=== PATIENT | male | born 1945 | race American Indian/Alaskan Native ===

== ENCOUNTER 2019-08-30 07:09 | Outpatient (CLI) | payer MEDICARE, OTHER ==
[2019-08-30 07:30] LABS: Hematocrit 45.8 % (35.5-45.6); Hemoglobin 15.3 gm/dl (11.8-15.2); Mean Corpuscular HGB Conc 33 % (32-34); Mean Corpuscular Volume 101 fl (84-94); Platelet Count 186 K/mm3 (140-440); Red Blood Count 4.55 M/mm3 (3.65-5.03); Red Cell Distribution Width 14.6 % (13.2-15.2)
[2019-08-30 07:51] LABS: Alanine Aminotransferase 27 units/L (7-56); Albumin 4.3 g/dL (3.9-5); BUN/Creatinine Ratio 14; Blood Urea Nitrogen 17 mg/dL (9-20); Calcium 9.8 mg/dL (8.4-10.2); Chol/HDL Ratio 2.69 %; HDL Cholesterol 78 mg/dL (40-59); Hemolysis Index 4; LDL Cholesterol,Direct 136 mg/dL (50-130)
--- NOTE | 2019-08-30 08:15 | Cat Scan Report ---
CT CHEST WITHOUT CONTRAST INDICATION / CLINICAL INFORMATION: Follow up on right lung pulmonary nodule. TECHNIQUE: Axial CT images were obtained through the chest without contrast. Sagittal and coronal reformatted im ages. All CT scans at this location are performed using CT dose reduction for ALARA by means of autom ated exposure control. COMPARISON: None available at this facility. FINDINGS: HEART: Heart size is at the upper limits of normal with mild three-vessel coronary artery calcificati ons. No pericardial effusion. THORACIC AORTA: Minor atherosclerotic calcifications at the arch. No aneurysm. MEDIASTINUM and RADHA: The thyroid gland, tracheobronchial tree and esophagus are unremarkable. No med iastinal mass or adenopathy. LUNGS: The lungs are generally well-aerated. Mild chronic interstitial changes are noted at the lung bases. A 5 mm subpleural nodule is identified in the lateral right lower lobe on image 207, series 3. A 3 mm subpleural pulmonary nodule is identified in the posterior right lower lobe on image 229, ser ies 3. Overall these nodules have a benign appearance. No large or suspicious pulmonary nodule/mass. PLEURA: No significant pleural effusion. No pneumothorax. SKELETAL SYSTEM: Mild degenerative changes in the spine. UPPER ABDOMEN: A 2.5 cm peripherally calcified structure is identified in the fundus of the gallbladd er. It is unclear if this represents a peripherally calcified gallstone or possibly gallbladder wall calcifications. No biliary dilatation or inflammation. ADDITIONAL FINDINGS: None. IMPRESSION: There are 2 tiny benign-appearing subpleural nodules in the right lower lobe as described. Consider follow-up in 6-12 months. Mild chronic interstitial changes at the lung bases. Borderline heart size. 2.5 cm peripherally calcified gallstone versus gallbladder wall calcifications. Signer Name: Trace Jessica Jr, MD Signed: 08/30/2019 8:10 AM Workstation Name: [id number]
--- NOTE | 2019-08-30 09:09 | XRay Report ---
CHEST 2 VIEWS INDICATION: FOLLOW UP PULM NODULE. COMPARISON: None. FINDINGS: Support devices: None. Heart: Within normal limits. Pulmonary vasculature: Normal. Lungs/pleura: The lungs are normally expanded and clear except for streaky opacities in the lower lob e region on the lateral view. No pleural effusion. No pulmonary nodule. There is a prominent left nip ple shadow and a less prominent right nipple shadow. No pneumothorax. Additional findings: None. IMPRESSION: 1. No pulmonary nodule or mass. 2. Lower lobe opacities are of uncertain significance but likely represent atelectasis or scar. Signer Name: Julio Arreola MD Signed: 08/30/2019 9:04 AM Workstation Name: [id number]
== END 2019-08-30 07:10 | disposition home or self-care (01) ==
LOC: CT 07:09
PROVIDERS: ATTEND Internal Medicine
DX: J98.4 Other disorders of lung (principal); I25.10 Atherosclerotic heart disease of native coronary artery without angina pectoris; M47.819 Spondylosis without myelopathy or radiculopathy, site unspecified
CPT/HCPCS: 36415; 71046; 71250; 80053; 80061; 84436; 84443; 85027

== ENCOUNTER 2020-06-28 07:05 | Outpatient (CLI) | payer MEDICARE, OTHER ==
--- NOTE | 2020-06-28 07:58 | Cat Scan Report ---
CT CHEST WITHOUT CONTRAST INDICATION / CLINICAL INFORMATION: FOLLOW UP ON PULMONARY NODULES. TECHNIQUE: Axial CT images were obtained through the chest without contrast. Sagittal and coronal reformatted im ages. All CT scans at this location are performed using CT dose reduction for ALARA by means of autom ated exposure control. COMPARISON: 08/30/2019 FINDINGS: HEART: Heart size remains within normal limits with coronary artery calcifications. No pericardial ab normality. THORACIC AORTA: Stable mild atherosclerotic disease. No aneurysm. MEDIASTINUM and RADHA: No significant abnormality. LUNGS: Previously described millimetric nodules in the lateral and posterior right lower lobe are unc hanged in size and contour. No new pulmonary lesion has developed. Mild chronic interstitial changes at the lung bases are again noted. No infiltrate. PLEURA: No significant pleural effusion. No pneumothorax. SKELETAL SYSTEM: Mild thoracic spondylosis. UPPER ABDOMEN: Large peripherally calcified gallstone measuring 2.2 cm is unchanged. No biliary dilat ation or inflammation. ADDITIONAL FINDINGS: None. IMPRESSION: No change since 08/30/2019 exam. Signer Name: Trace Jessica Jr, MD Signed: 06/28/2020 7:53 AM Workstation Name: [id number]
== END 2020-06-28 07:06 | disposition home or self-care (01) ==
LOC: CT 07:05
PROVIDERS: ATTEND Internal Medicine
DX: I70.0 Atherosclerosis of aorta (principal); R91.1 Solitary pulmonary nodule; K80.80 Other cholelithiasis without obstruction
CPT/HCPCS: 71250

== ENCOUNTER 2020-08-28 07:31 | Outpatient (CLI) | payer MEDICARE, OTHER ==
--- NOTE | 2020-08-28 08:47 | Cat Scan Report ---
CT CHEST WITHOUT CONTRAST INDICATION / CLINICAL INFORMATION: FOLLOW UP ON PULMONARY NODULES. TECHNIQUE: Axial CT images were obtained through the chest without contrast. Sagittal and coronal reformatted im ages. All CT scans at this location are performed using CT dose reduction for ALARA by means of autom ated exposure control. COMPARISON: 06/28/2020. 08/30/2019 FINDINGS: HEART: Heart size remains within normal limits. Moderate coronary artery calcifications are stable. THORACIC AORTA: No significant abnormality. MEDIASTINUM and RADHA: No significant abnormality. LUNGS: No acute air space or interstitial disease. Previously described millimetric nodules in the r ight lower lobe are unchanged. No new nodule or suspicious nodule. PLEURA: No significant pleural effusion. No pneumothorax. SKELETAL SYSTEM: No significant abnormality. UPPER ABDOMEN: Large 2.2 cm gallstone in the gallbladder fundus is unchanged. Scattered right renal c ysts are stable. No acute process. ADDITIONAL FINDINGS: None. IMPRESSION: No change since 08/30/2019. Essentially unremarkable CT chest without contrast otherwise. Cholelithiasis. Signer Name: Trace Jessica Jr, MD Signed: 08/28/2020 8:42 AM Workstation Name: [id number]
== END 2020-08-28 07:32 | disposition home or self-care (01) ==
LOC: CT 07:31
PROVIDERS: ATTEND Internal Medicine
DX: R91.1 Solitary pulmonary nodule (principal); I25.10 Atherosclerotic heart disease of native coronary artery without angina pectoris; N28.1 Cyst of kidney, acquired; K80.80 Other cholelithiasis without obstruction
CPT/HCPCS: 71250

== ENCOUNTER 2021-09-03 07:37 | Outpatient (CLI) | payer MEDICARE, OTHER ==
--- NOTE | 2021-09-03 08:31 | Cat Scan Report ---
CT CHEST WITHOUT CONTRAST INDICATION / CLINICAL INFORMATION: Pulmonary Nodules. TECHNIQUE: Axial CT images were obtained through the chest without contrast. All CT scans at this location are p erformed using CT dose reduction for ALARA by means of automated exposure control. COMPARISON: 08/28/2020 FINDINGS: There are a few small pulmonary nodules along the periphery of the right upper lung measuring to 3 mm . These were not definitely seen on the prior exam. There is a nodule peripherally in the right lower lung measuring 5 mm, previously 4 mm. Mild interstitial prominence in the right middle lobe and righ t lower lung. Chronic interstitial changes seen in bilateral lungs coronary artery disease is seen. L arge gallstones in the gallbladder. No dominant adenopathy. No acute bone findings are seen. IMPRESSION: 1. Most prominent pulmonary nodules in the right lower lung measuring 5 mm, previously 4 mm. There ar e questionable tiny peripheral 2 to 3 mm pulmonary nodules in the right upper lung which was not defi nitely seen on the prior examination. A follow-up examination in 6 months recommended. 2. Chronic interstitial change in bilateral lungs. Signer Name: Mic Jeong MD Signed: 09/03/2021 8:27 AM Workstation Name: [id number]
== END 2021-09-03 07:38 | disposition home or self-care (01) ==
LOC: CT 07:37
PROVIDERS: ATTEND Internal Medicine
DX: R91.1 Solitary pulmonary nodule (principal); R91.8 Other nonspecific abnormal finding of lung field
CPT/HCPCS: 71250

== ENCOUNTER 2022-05-06 07:32 | Outpatient (CLI) | payer MEDICARE, OTHER ==
[2022-05-06 08:52] LABS: Hematocrit 43.6 % (35.5-45.6); Hemoglobin 14.5 gm/dl (11.8-15.2); Mean Corpuscular HGB Conc 33 % (32-34); Mean Corpuscular Volume 98 fl (84-94); Platelet Count 195 K/mm3 (140-440); Red Blood Count 4.43 M/mm3 (3.65-5.03); Red Cell Distribution Width 13.5 % (13.2-15.2)
--- NOTE | 2022-05-06 08:52 | Cat Scan Report ---
CT CHEST WITHOUT CONTRAST INDICATION / CLINICAL INFORMATION: FOLLOWUP ON PULMONARY NODULES. TECHNIQUE: Axial CT images were obtained through the chest without contrast. All CT scans at this [facility] ation are performed using CT dose reduction for ALARA by means of automated exposure control. COMPARISON: 09/03/2021 FINDINGS: HEART: Borderline heart size. No pericardial abnormality. CORONARY ARTERY CALCIFICATION: Present -- Severe. THORACIC AORTA: Mild atherosclerotic calcification without acute abnormality. MEDIASTINUM / RADHA: No significant abnormality. PLEURA: No pleural effusion. No pneumothorax. LUNGS: No acute air space or interstitial disease. Previously described scattered tiny millimetric pu lmonary nodules in the right lung are unchanged in size and number. No left lung nodules are detected . The largest nodule measures 4 mm in the lateral right lower lobe on image 63, series 2. ADDITIONAL FINDINGS: None. UPPER ABDOMEN: Stable large gallstone without evidence for acute cholecystitis. Nothing acute. SKELETAL SYSTEM: No significant abnormality. IMPRESSION: 1. No change since 09/03/2021. Signer Name: Trace Jessica Jr, MD Signed: 05/06/2022 8:48 AM Workstation Name: [id number]
[2022-05-06 09:05] LABS: Alanine Aminotransferase 26 units/L (7-56); Albumin 4.3 g/dL (3.9-5); BUN/Creatinine Ratio 9; Blood Urea Nitrogen 11 mg/dL (9-20); Calcium 9.5 mg/dL (8.4-10.2); Hemolysis Index 5
== END 2022-05-06 07:33 | disposition home or self-care (01) ==
LOC: CT 07:32
PROVIDERS: ATTEND Internal Medicine
DX: R91.1 Solitary pulmonary nodule (principal); J45.909 Unspecified asthma, uncomplicated; I25.10 Atherosclerotic heart disease of native coronary artery without angina pectoris; I70.0 Atherosclerosis of aorta; I10 Essential (primary) hypertension; K80.20 Calculus of gallbladder without cholecystitis without obstruction; F17.200 Nicotine dependence, unspecified, uncomplicated
CPT/HCPCS: 36415; 71250; 80053; 85027